=== PATIENT | female | born 1990 | race Caucasian/White ===

== ENCOUNTER 2017-07-23 12:59 | Emergency (ER) | payer OTHER ==
[~2017-07-23] VITALS: Ht 170.2 cm; Wt 72.6 kg
[~2017-07-23 12:59] MED LIST: ALPR.25 PO; BIRTH CONTROL PILL; Bactrim Ds Tab1 EACH PO; CEPH500 PO; CITA20 PO; CYCL10 PO; DIAZ5 PO; HYDACE5 PO; IBUP600 PO; LOPE2C PO; MEDR150I; NAPR500 PO; PROCODE120 PO; PROM25 PO; Permethrin60 GM TP; Ultram50 MG PO
[2017-07-23] MEDS ORDERED: Mupirocin22 GM TOP (13:52)
== END 2017-07-23 14:20 | disposition home or self-care (01) ==
LOC: ER 12:59
DX: L02.412 Cutaneous abscess of left axilla (principal); L98.9 Disorder of the skin and subcutaneous tissue, unspecified; Z20.2 Contact with and (suspected) exposure to infections with a predominantly sexual mode of transmission; F17.210 Nicotine dependence, cigarettes, uncomplicated
CPT/HCPCS: 10061; 36415; 86592; 96372; 99283; J0696

== ENCOUNTER 2019-07-29 03:04 | Emergency (ER) | payer OTHER ==
[~2019-07-29] VITALS: Ht 167.6 cm; Wt 68.0 kg
[~2019-07-29 03:04] MED LIST changes: +Mupirocin22 GM TOP
[2019-07-29] MEDS ORDERED: Augmentin 500-1 EACH PO (05:02)
== END 2019-07-29 05:20 | disposition home or self-care (01) ==
LOC: ER 03:04
DX: S51.811A Laceration without foreign body of right forearm, initial encounter (principal); F32.9 Major depressive disorder, single episode, unspecified; F17.210 Nicotine dependence, cigarettes, uncomplicated; Z23 Encounter for immunization; W23.0XXA Caught, crushed, jammed, or pinched between moving objects, initial encounter
CPT/HCPCS: 12001; 73200; 90471; 90714; 96365-59; 96375-59; 99283-25; J0690; J1885

== ENCOUNTER → 2019-09-29 | Outpatient (CLI) | payer OTHER ==
[~2019-09-29] MED LIST changes: +Augmentin 500-1 EACH PO; +Flexeril5 MG PO; +KETO10 PO
== END | disposition home or self-care (01) ==
LOC: LAB SHORT 18:33 → LAB EV 18:33
DX: R82.79 Other abnormal findings on microbiological examination of urine (principal)
CPT/HCPCS: 87086

== ENCOUNTER 2019-10-03 14:14 | Emergency (ER) | payer OTHER ==
[~2019-10-03] VITALS: Ht 170.2 cm; Wt 70.3 kg
[~2019-10-03 14:14] MED LIST changes: -Flexeril5 MG PO; -KETO10 PO
[2019-10-03 14:58] LABS: BASOPHILS ABSOLUTE AUTO 0.06 K/mm3 (0.00-0.23); BASOPHILS PERCENT AUTO 0 % (0-2); EOSINOPHILS ABSOLUTE AUTO 0.13 K/mm3 (0.00-0.68); EOSINOPHILS PERCENT AUTO 1 % (0-6); Hematocrit 38.9 % (33.0-51.0); Hemoglobin 12.6 g/dL (11.5-16.0); IMMATURE GRAN PERCENT AUTO 1 % (0-1); LYMPHOCYTES ABSOLUTE AUTO 3.19 K/mm3 (0.84-5.20); LYMPHOCYTES PERCENT AUTO 17 % (21-46); MONOCYTES ABSOLUTE AUTO 1.65 K/mm3 (0.16-1.47); MONOCYTES PERCENT AUTO 9 % (4-13); Mean Corpuscular HGB 27.4 pg (26.0-34.0); Mean Corpuscular HGB Conc 32.4 g/dL (31.5-36.5); Mean Corpuscular Volume 85 fL (80-100); Mean Platelet Volume 9.9 fL (9.1-12.4); NEUTROPHILS ABSOLUTE AUTO 13.77 K/mm3 (1.96-9.15); NEUTROPHILS PERCENT AUTO 73 % (41-73); Platelet Count 500 K/mm3 (150-400); RDW Coefficient Variation 13.5 % (11.7-14.2); RDW Standard Deviation 42.3 fL (35.1-46.3)
[2019-10-03 15:21] LABS: Alanine Aminotransfer (ALT/SGP 35 U/L (12-78); Albumin/Globulin Ratio 0.5 (0.8-1.8); Alk Phos 111 U/L (50-136); Anion Gap 7 mmol/L (6-16); Aspartate Aminotrans (AST/SGOT 26 U/L (12-37); Bilirubin, Total 0.4 mg/dL (0.1-1.0); Blood Urea Nitrogen 9 mg/dL (8-24); Bun/Creatinine Ratio 12.2 (12.0-20.0); CO2, Blood 26 mmol/L (21-32); Calcium, Blood 9.4 mg/dL (8.5-10.1); Chloride, Blood 105 mmol/L (98-108); Creatinine, Blood 0.74 mg/dL (0.40-1.00); Globulin, Blood 5.9 g/dL (2.2-4.0); Glomerular Filtration Rate >60 (60-); Glucose, Blood 94 mg/dL (70-99); Potassium, Blood 3.5 mmol/L (3.5-5.5); Sodium, Blood 138 mmol/L (136-145); Total Protein, Blood 8.9 g/dL (6.4-8.2)
[2019-10-03] MEDS ORDERED: Flexeril5 MG PO (18:19)
[2019-10-03] MEDS ORDERED: KETO10 PO (18:19)
== END 2019-10-03 18:53 | disposition home or self-care (01) ==
LOC: ER 14:14
PROVIDERS: Physician Assistant
DX: M54.5 Low back pain (principal); F17.210 Nicotine dependence, cigarettes, uncomplicated
CPT/HCPCS: 36415; 76770; 80053; 83690; 85025; 96374; 99283-25; J1885

== ENCOUNTER 2019-11-07 03:46 | Emergency (ER) | payer OTHER ==
[~2019-11-07] VITALS: Ht 170.2 cm; Wt 68.0 kg
[~2019-11-07 03:46] MED LIST changes: +Flexeril5 MG PO; +KETO10 PO
[2019-11-07 04:18] LABS: Source, Urine Clean Catch
[2019-11-07 04:21] LABS: Appearance, Urine Clear (Clear); Blood, Urine 3+ (Neg); Color, Urine Amber (P-Yellow); Glucose Qualitative, Urine Neg (Neg); Ketones, Urine 3+ (Neg); Leukocyte Esterase, Urine 2+ (Neg); Nitrite, Urine Neg (Neg); Protein, Urine 2+ (Neg); Urobilinogen, Urine 1+ (Normal)
[2019-11-07 04:24] LABS: Bilirubin, Urine 1+ (Neg)
[2019-11-07 04:27] LABS: Bacteria Many /hpf; Hyaline Casts 0-2 /lpf (0-2); Mucus Mod (0-Heavy); Red Blood Cells, Urine 0-2 /hpf (0-2); Squamous Epithelial Cells Few /hpf (Few)
[2019-11-07 04:36] LABS: BASOPHILS ABSOLUTE AUTO 0.05 K/mm3 (0.00-0.23); BASOPHILS PERCENT AUTO 0 % (0-2); EOSINOPHILS ABSOLUTE AUTO 0.14 K/mm3 (0.00-0.68); EOSINOPHILS PERCENT AUTO 1 % (0-6); Hematocrit 37.5 % (33.0-51.0); IMMATURE GRAN ABSOLUTE AUTO 0.03 K/mm3 (0.00-0.10); IMMATURE GRAN PERCENT AUTO 0 % (0-1); LYMPHOCYTES ABSOLUTE AUTO 2.19 K/mm3 (0.84-5.20); LYMPHOCYTES PERCENT AUTO 19 % (21-46); MONOCYTES ABSOLUTE AUTO 0.92 K/mm3 (0.16-1.47); MONOCYTES PERCENT AUTO 8 % (4-13); Mean Corpuscular HGB 26.7 pg (26.0-34.0); Mean Corpuscular Volume 84 fL (80-100); NEUTROPHILS ABSOLUTE AUTO 8.11 K/mm3 (1.96-9.15); NEUTROPHILS PERCENT AUTO 71 % (41-73); Platelet Count 350 K/mm3 (150-400); RDW Coefficient Variation 13.2 % (11.7-14.2); RDW Standard Deviation 40.2 fL (35.1-46.3); Red Blood Cell Count 4.49 M/mm3 (3.80-5.20); White Blood Cell Count 11.44 K/mm3 (4.00-11.30)
[2019-11-07 04:54] LABS: Alanine Aminotransfer (ALT/SGP 25 U/L (12-78); Albumin, Blood 3.2 g/dL (3.4-5.0); Albumin/Globulin Ratio 0.5 (0.8-1.8); Alk Phos 124 U/L (50-136); Anion Gap 8 mmol/L (6-16); Aspartate Aminotrans (AST/SGOT 27 U/L (12-37); Bilirubin, Total 0.5 mg/dL (0.1-1.0); Blood Urea Nitrogen 12 mg/dL (8-24); Bun/Creatinine Ratio 18.2 (12.0-20.0); CO2, Blood 28 mmol/L (21-32); Calcium, Blood 10.3 mg/dL (8.5-10.1); Chloride, Blood 98 mmol/L (98-108); Creatinine, Blood 0.66 mg/dL (0.40-1.00); Globulin, Blood 6.3 g/dL (2.2-4.0); Glomerular Filtration Rate >60 (60-); Glucose, Blood 99 mg/dL (70-99); Potassium, Blood 4.1 mmol/L (3.5-5.5); Sodium, Blood 134 mmol/L (136-145); Total Protein, Blood 9.5 g/dL (6.4-8.2)
== END 2019-11-07 06:41 | disposition home or self-care (01) ==
LOC: ER 03:46
PROVIDERS: Emergency Medicine
DX: M54.5 Low back pain (principal); F11.90 Opioid use, unspecified, uncomplicated; F17.210 Nicotine dependence, cigarettes, uncomplicated
CPT/HCPCS: 36415; 80053; 81001; 83605; 85025; 87086; 96361; 96374; 99283-25; J1885; J7030

== ENCOUNTER 2021-06-20 19:00 | Emergency (ER) | payer OTHER ==
[~2021-06-20] VITALS: Ht 170.2 cm; Wt 68.0 kg
[2021-06-20] MEDS ORDERED: Bactrim Ds Tab1 EACH PO (21:11)
[2021-06-20] MEDS ORDERED: CEPH500 PO (21:11)
== END 2021-06-20 21:20 | disposition home or self-care (01) ==
LOC: ER 19:00
DX: L02.414 Cutaneous abscess of left upper limb (principal); L03.114 Cellulitis of left upper limb; F17.210 Nicotine dependence, cigarettes, uncomplicated
CPT/HCPCS: 99283; A9270

== ENCOUNTER 2022-07-21 20:56 | Emergency (ER) | payer SELFPAY ==
[~2022-07-21] VITALS: Ht 170.2 cm; Wt 68.0 kg
[2022-07-21 21:01] VITALS: BP 124/63
== END 2022-07-21 21:29 | disposition left against medical advice (07) ==
LOC: ER 20:56
DX: R11.2 Nausea with vomiting, unspecified (principal); R10.9 Unspecified abdominal pain; Z53.21 Procedure and treatment not carried out due to patient leaving prior to being seen by health care provider
CPT/HCPCS: 99281

== ENCOUNTER 2025-01-20 03:27 | Emergency (ER) | payer OTHER ==
[~2025-01-20] VITALS: Ht 170.2 cm; Wt 68.0 kg
[2025-01-20 04:15] VITALS: BP 125/72
[2025-01-20] MEDS ORDERED: RX Prepack 2 Tabs Ondansetron ODT 4MG UD ONE (04:20)
== END 2025-01-20 04:32 | disposition home or self-care (01) ==
LOC: ER 03:27
DX: R11.2 Nausea with vomiting, unspecified (principal); F17.210 Nicotine dependence, cigarettes, uncomplicated
CPT/HCPCS: 99283; A9270